=== PATIENT | female | born 1945 | race Two or more races ===

== ENCOUNTER 2023-12-27 05:35 | Day surgery (SDC) | payer OTHER ==
[~2023-12-27 05:35] MED LIST: ALLEGRA-D1 TAB.SR1 PO; CRESTOR20 MG PO; CYMBALTA60 MG PO; DIOVAN HCT 160-1 TAB PO; NORVASC5 MG PO; VIT D
[2023-12-27] MEDS ORDERED: CEFAZOLIN SODIUM 1,000 MG VIAL ONE (07:22)
[2023-12-27] MEDS ORDERED: POVIDONE-IODINE 118 ML BOTT TOP ONE ×2 (07:30→08:15)
[2023-12-27] MEDS ORDERED: CEFAZOLIN SODIUM 1,000 MG VIAL IV ONE (08:15)
[2023-12-27] MEDS ORDERED: BUPIVACAINE HCL 0.5% 50ML VIAL ONE (08:21)
[2023-12-27] MEDS ORDERED: LIDOCAINE HCL 1%/EPINEPHRINE 20ML VIAL IJ ONE ×2 (08:22→08:45)
[2023-12-27] MEDS ORDERED: BUPIVACAINE HCL 30 ML VIAL IJ ONE (08:45)
== END 2023-12-27 12:35 | disposition home or self-care (01) ==
LOC: CIR.AMB 05:35
PROVIDERS: ATTEND Colon & Rectal Surgery
DX: R15.9 Full incontinence of feces (principal); Z88.6 Allergy status to analgesic agent; I10 Essential (primary) hypertension; F41.9 Anxiety disorder, unspecified; J45.909 Unspecified asthma, uncomplicated; N19 Unspecified kidney failure
CPT/HCPCS: 64581; 95972; C1778

== ENCOUNTER 2024-01-10 05:19 | Day surgery (SDC) | payer OTHER ==
[2024-01-10] MEDS ORDERED: BUPIVACAINE HCL 30 ML VIAL IJ ONE (08:00)
[2024-01-10] MEDS ORDERED: LIDOCAINE HCL 1%/EPINEPHRINE 20ML VIAL IJ ONE (08:00)
[2024-01-10] MEDS ORDERED: CEFAZOLIN SODIUM 1,000 MG VIAL IV SCH (08:00)
== END 2024-01-10 10:10 | disposition home or self-care (01) ==
LOC: CIR.AMB 05:19
PROVIDERS: ATTEND Colon & Rectal Surgery
DX: R15.9 Full incontinence of feces (principal); Z88.6 Allergy status to analgesic agent; Z88.8 Allergy status to other drugs, medicaments and biological substances; I10 Essential (primary) hypertension
CPT/HCPCS: 64590; 95972; C1767